=== PATIENT | male | born 1950 | race Caucasian/White ===

== ENCOUNTER 2018-06-28 15:52 | Inpatient (IN) | payer OTHER ==
[~2018-06-28] VITALS: Ht 172.7 cm; Wt 72.6 kg
[~2018-06-28 15:52] MED LIST: ACETAMINOPHEN325 M2 PO; ATROVENT H0.017 MG/1 IH; BAYER ASPIRIN C81 MG PO; DIL100 PO; DILTIAZEM60 M1 PO; HYT2 PO; ISOSORBIDE MONO30 MG PO; METFORMIN500 M1 PO; NITROGLYCERIN0.4 MG SL; PRAVASTATIN SOD80 M1 PO; PRILOSEC20 MG PO; XOPENEX HF0.045 MG/1 IH; ZESTRIL20 MG PO
[2018-06-28 15:57] VITALS: Ht 172.7 cm; Wt 72.6 kg
[2018-06-28] MEDS ORDERED: FINASTERIDE5 M1 PO (16:11)
[2018-06-28] MEDS ORDERED: KEPPRA500 MG PO (16:11)
[2018-06-28] MEDS ORDERED: CRESTOR40 M1 PO (16:11)
[2018-06-28] MEDS ORDERED: TAMSULOSIN HYD0.4 M1 PO (16:12)
[2018-06-28 16:38] LABS: BASOPHIL % 0.6 % (0-2); PLATELET COUNT 173 x10^3mcL (130-400); RED CELL DISTRIBUTION WIDTH 11.9 % (11.5-14.5)
[2018-06-28 16:51] LABS: CALCIUM 8.5 mg/dL (8.5-10.1); CARBON DIOXIDE 22.5 mmol/L (21-32); CHLORIDE SERUM 111 mmol/L (98-107); CREATININE SERUM 1.1 mg/dL (0.7-1.3); GFR1 > 60 mL/min; GLUCOSE SERUM 121 mg/dL (74-106); POTASSIUM SERUM 3.9 mmol/L (3.5-5.1); SODIUM SERUM 140 mmol/L (136-145)
[2018-06-28 16:57] LABS: ALKALINE PHOSPHATASE 79 U/L (46-116); ALT/SGPT 19 U/L (16-63); AST/SGOT 14 U/L (15-37); BILIRUBIN TOTAL 0.36 mg/dL (0.20-1.00); HDL CHOLESTEROL 42 mg/dL (40-60); LIPASE 144 IU/L (73-393); TRIGLYCERIDES 140 mg/dL (<150)
[2018-06-28 16:59] LABS: ALBUMIN 2.9 g/dL (3.4-5.0); CHOLESTEROL 121 mg/dL (<200); CHOLESTEROL/HDL RATIO 2.9; TOTAL PROTEIN, SERUM 5.3 g/dL (6.4-8.2)
[2018-06-28 17:16] LABS: microscopic required? NO
[2018-06-28 17:19] LABS: UA SPECIFIC GRAVITY <=1.005 (1.005-1.035); urine erythrocyte NEGATIVE (NEGATIVE)
[2018-06-28 17:20] LABS: FREE T4 1.38 ng/dL (0.76-1.46); FREE THYROXINE INDEX 2.4 ug/dL (1.4-4.5); T4(THYROXINE) 6.5 ug/dL (4.7-13.3)
[2018-06-28 17:21] LABS: T3 TOTAL 1.05 ng/mL
[2018-06-28 18:24] VITALS: BP 114/53
[2018-06-28] MEDS ORDERED: XARELTO10 M1 PO (19:47)
[2018-06-28] MEDS ORDERED: DILTIAZEM HCL180 MG PO (19:48)
[2018-06-28] MEDS ORDERED: ZESTRIL10 MG PO (19:49)
[2018-06-28 20:07] LABS: MAGNESIUM 1.7 mg/dL (1.8-2.4)
[2018-06-28 21:18] VITALS: BP 104/53
[2018-06-29 02:53] LABS: AMPHETAMINE QUAL UR NONE DETECTED (See below)
[2018-06-29 05:36] VITALS: BP 122/68
[2018-06-29 05:45] LABS: BASOPHIL % 0.3 % (0-2); PLATELET COUNT 193 x10^3mcL (130-400); RED CELL DISTRIBUTION WIDTH 12.2 % (11.5-14.5)
[2018-06-29 06:05] LABS: CALCIUM 9.5 mg/dL (8.5-10.1); CARBON DIOXIDE 22.5 mmol/L (21-32); CHLORIDE SERUM 109 mmol/L (98-107); CREATININE SERUM 0.7 mg/dL (0.7-1.3); GFR1 > 60 mL/min; GLUCOSE SERUM 101 mg/dL (74-106); POTASSIUM SERUM 4.3 mmol/L (3.5-5.1); SODIUM SERUM 141 mmol/L (136-145)
[2018-06-29 07:08] LABS: T4(THYROXINE) 6.3 ug/dL (4.7-13.3)
[2018-06-29 09:14] VITALS: BP 122/74
[2018-06-29 12:27] VITALS: BP 110/61
[2018-06-29 16:32] VITALS: BP 98/51
[2018-06-29 21:50] VITALS: BP 108/54
[2018-06-30 05:44] VITALS: BP 110/70
[2018-06-30 09:05] VITALS: BP 138/64
[2018-06-30 11:45] LABS: CALCIUM 9.6 mg/dL (8.5-10.1); CARBON DIOXIDE 25.7 mmol/L (21-32); CHLORIDE SERUM 108 mmol/L (98-107); CREATININE SERUM 0.8 mg/dL (0.7-1.3); GFR1 > 60 mL/min; GLUCOSE SERUM 105 mg/dL (74-106); POTASSIUM SERUM 4.3 mmol/L (3.5-5.1); SODIUM SERUM 138 mmol/L (136-145)
[2018-06-30 12:12] LABS: RHEUMATOID ARTHRITIS FACTOR <10.0 IU/mL (0.0-13.9)
[2018-06-30 15:05] VITALS: BP 103/55
[2018-06-30 17:36] VITALS: BP 107/59
[2018-06-30 20:23] VITALS: BP 100/61
[2018-07-01 06:08] VITALS: BP 116/69
[2018-07-01 08:54] VITALS: BP 128/73
[2018-07-01 09:51] VITALS: BP 128/73
== END 2018-07-01 13:10 | disposition other institution (70) | DRG 923 ==
LOC: ED 15:52 → DU 17:25
PROVIDERS: Internal Medicine; Specialist
DX: T67.5XXA Heat exhaustion, unspecified, initial encounter (principal); I25.10 Atherosclerotic heart disease of native coronary artery without angina pectoris; J44.9 Chronic obstructive pulmonary disease, unspecified; W19.XXXA Unspecified fall, initial encounter; I10 Essential (primary) hypertension; E11.40 Type 2 diabetes mellitus with diabetic neuropathy, unspecified; G40.909 Epilepsy, unspecified, not intractable, without status epilepticus; Z88.2 Allergy status to sulfonamides; Z88.8 Allergy status to other drugs, medicaments and biological substances; Z91.041 Radiographic dye allergy status; X30.XXXA Exposure to excessive natural heat, initial encounter; Y93.89 Activity, other specified; Y92.89 Other specified places as the place of occurrence of the external cause; Y99.8 Other external cause status; Z88.3 Allergy status to other anti-infective agents; E86.0 Dehydration; I48.91 Unspecified atrial fibrillation
CPT/HCPCS: 82962; 83880; 84439; 86431; A9500; J2785; J7030; J7626; J7644; Q0092

== ENCOUNTER 2018-12-27 03:21 | Inpatient (IN) | payer OTHER ==
[~2018-12-27] VITALS: Ht 167.6 cm; Wt 74.0 kg
[~2018-12-27 03:21] MED LIST changes: +CRESTOR40 M1 PO; +DILTIAZEM HCL180 MG PO; +FINASTERIDE5 M1 PO; +KEPPRA500 MG PO; +TAMSULOSIN HYD0.4 M1 PO; +XARELTO10 M1 PO; +ZESTRIL10 MG PO
[2018-12-27 03:33] VITALS: Ht 167.6 cm; Wt 74.0 kg
[2018-12-27 04:45] LABS: BASOPHIL % 0.1 % (0-2); PLATELET COUNT 209 x10^3mcL (130-400); RED CELL DISTRIBUTION WIDTH 12.7 % (11.5-14.5)
[2018-12-27 04:56] LABS: CALCIUM 9.4 mg/dL (8.5-10.1); CARBON DIOXIDE 28.2 mmol/L (21-32); CHLORIDE SERUM 109 mmol/L (98-107); GFR1 > 60 mL/min; GLUCOSE SERUM 162 mg/dL (74-106); POTASSIUM SERUM 4.9 mmol/L (3.5-5.1); SODIUM SERUM 144 mmol/L (136-145)
[2018-12-27 05:00] LABS: ALBUMIN 3.5 g/dL (3.4-5.0); ALKALINE PHOSPHATASE 101 U/L (46-116); ALT/SGPT 21 U/L (16-63); AST/SGOT 15 U/L (15-37); BILIRUBIN TOTAL 0.34 mg/dL (0.20-1.00); TOTAL PROTEIN, SERUM 6.6 g/dL (6.4-8.2)
[2018-12-27] MEDS ORDERED: COLACE100 MG PO (05:14)
[2018-12-27] MEDS ORDERED: FIBER LAX625 MG PO (05:15)
[2018-12-27] MEDS ORDERED: DULERA1 AR2 INH (05:16)
[2018-12-27 08:11] LABS: MAGNESIUM 1.4 mg/dL (1.8-2.4)
[2018-12-27 10:14] VITALS: BP 130/68
[2018-12-27 13:01] VITALS: BP 110/64
[2018-12-27 14:25] VITALS: BP 130/68
[2018-12-27 16:59] VITALS: BP 100/52
[2018-12-27 20:49] VITALS: BP 97/52
== END 2018-12-27 23:37 | disposition left against medical advice (07) | DRG 191 ==
LOC: ED 03:21 → DU 05:55
PROVIDERS: Emergency Medicine; ADMIT Internal Medicine
DX: J44.1 Chronic obstructive pulmonary disease with (acute) exacerbation (principal); I24.9 Acute ischemic heart disease, unspecified; R09.1 Pleurisy; I25.10 Atherosclerotic heart disease of native coronary artery without angina pectoris; I10 Essential (primary) hypertension; E11.9 Type 2 diabetes mellitus without complications; I48.91 Unspecified atrial fibrillation; Z53.21 Procedure and treatment not carried out due to patient leaving prior to being seen by health care provider; I25.2 Old myocardial infarction; Z88.2 Allergy status to sulfonamides; Z88.8 Allergy status to other drugs, medicaments and biological substances; Z91.041 Radiographic dye allergy status
CPT/HCPCS: 82962; 83880; 85378; 94150; J7620; J7626; Q0092

== ENCOUNTER 2019-11-09 08:03 | Inpatient (IN) | payer OTHER ==
[~2019-11-09] VITALS: Ht 167.6 cm; Wt 75.3 kg
[~2019-11-09 08:03] MED LIST changes: +COLACE100 MG PO; +DULERA1 AR2 INH; +FIBER LAX625 MG PO
[2019-11-09 08:55] LABS: BASOPHIL % 0.6 % (0-2); PLATELET COUNT 227 x10^3mcL (130-400); RED CELL DISTRIBUTION WIDTH 14.3 % (11.5-14.5)
[2019-11-09 09:02] LABS: CALCIUM 9.7 mg/dL (8.5-10.1); CARBON DIOXIDE 25.7 mmol/L (21-32); CHLORIDE SERUM 106 mmol/L (98-107); GFR1 > 60 mL/min; GLUCOSE SERUM 145 mg/dL (74-106); POTASSIUM SERUM 4.3 mmol/L (3.5-5.1); SODIUM SERUM 139 mmol/L (136-145)
[2019-11-09 09:07] LABS: ALBUMIN 3.5 g/dL (3.4-5.0); ALKALINE PHOSPHATASE 81 U/L (46-116); ALT/SGPT 30 U/L (16-63); AST/SGOT 18 U/L (15-37); BILIRUBIN TOTAL 0.4 mg/dL (0.20-1.00); TOTAL PROTEIN, SERUM 6.8 g/dL (6.4-8.2)
[2019-11-09 13:32] VITALS: BP 121/61
[2019-11-09 13:36] VITALS: Ht 167.6 cm; Wt 75.3 kg
[2019-11-09 15:03] VITALS: BP 142/81
[2019-11-09 18:00] VITALS: BP 110/66
[2019-11-09 20:49] VITALS: BP 125/70
[2019-11-10 05:50] VITALS: BP 112/67
[2019-11-10 06:45] LABS: BASOPHIL % 0.5 % (0-2); PLATELET COUNT 223 x10^3mcL (130-400); RED CELL DISTRIBUTION WIDTH 14.3 % (11.5-14.5)
[2019-11-10 08:03] LABS: T4(THYROXINE) 7.1 ug/dL (4.7-13.3)
[2019-11-10 08:12] VITALS: BP 132/55
[2019-11-10 08:23] LABS: CALCIUM 9.9 mg/dL (8.5-10.1); CHLORIDE SERUM 105 mmol/L (98-107); CREATININE SERUM 0.9 mg/dL (0.7-1.3); GFR1 > 60 mL/min; GLUCOSE SERUM 103 mg/dL (74-106); POTASSIUM SERUM 4.3 mmol/L (3.5-5.1); SODIUM SERUM 139 mmol/L (136-145)
[2019-11-10 08:43] LABS: ERYTHROCYTE SED RATE 15 mm/hr (0-20)
[2019-11-10 11:56] VITALS: BP 111/64
[2019-11-10 17:16] VITALS: BP 105/51
[2019-11-10 20:02] VITALS: BP 105/58
[2019-11-11 04:06] LABS: RAPID PLASMA REAGIN Non Reactive (Non Reactive)
[2019-11-11 05:29] VITALS: BP 138/67
[2019-11-11 08:28] LABS: PLATELET COUNT 216 x10^3mcL (130-400); RED CELL DISTRIBUTION WIDTH 14.3 % (11.5-14.5)
[2019-11-11 08:29] LABS: BASOPHIL % 0 % (0-2)
[2019-11-11 09:05] LABS: RHEUMATOID ARTHRITIS FACTOR <10.0 IU/mL (0.0-13.9)
[2019-11-11 09:34] VITALS: BP 126/64
[2019-11-11 12:23] VITALS: BP 126/64
[2019-11-11 13:05] VITALS: BP 133/71
== END 2019-11-11 13:45 | disposition other institution (70) | DRG 312 ==
LOC: ED 08:03 → DU 11:16
PROVIDERS: Emergency Medicine; ADMIT Internal Medicine
DX: R55 Syncope and collapse (principal); I48.20 Chronic atrial fibrillation, unspecified; E11.9 Type 2 diabetes mellitus without complications; I25.10 Atherosclerotic heart disease of native coronary artery without angina pectoris; J44.9 Chronic obstructive pulmonary disease, unspecified; I10 Essential (primary) hypertension; G40.909 Epilepsy, unspecified, not intractable, without status epilepticus; Z79.01 Long term (current) use of anticoagulants; Z79.84 Long term (current) use of oral hypoglycemic drugs; Z88.2 Allergy status to sulfonamides; Z88.8 Allergy status to other drugs, medicaments and biological substances; Z91.041 Radiographic dye allergy status; Z79.899 Other long term (current) drug therapy
CPT/HCPCS: 82962; 86431; 94150; G0378; G0480; J1200; J1815; J7512; J7644; Q0092; Q9967